=== PATIENT | female | born 1945 | race Caucasian/White ===

== ENCOUNTER → 2017-03-25 | Outpatient (CLI) | payer OTHER | END | disposition home or self-care (01) | LOC: KCIC US 10:22 | DX: R09.89 Other specified symptoms and signs involving the circulatory and respiratory systems (principal) | CPT/HCPCS: 93880 ==

== ENCOUNTER → 2017-08-15 | Outpatient (CLI) | payer OTHER | END | disposition home or self-care (01) | LOC: ECHO 08:42 | DX: I08.1 Rheumatic disorders of both mitral and tricuspid valves (principal); G45.9 Transient cerebral ischemic attack, unspecified | CPT/HCPCS: 93306 ==

== ENCOUNTER → 2017-08-18 | Outpatient (CLI) | payer OTHER | END | disposition home or self-care (01) | LOC: MRI 07:50 | DX: G45.9 Transient cerebral ischemic attack, unspecified (principal); F48.2 Pseudobulbar affect | CPT/HCPCS: 70544; 70547; 70551 ==

== ENCOUNTER → 2019-05-05 | Outpatient (CLI) | payer MEDICARE ==
--- NOTE | 2019-05-05 12:02 | KCIC ---
Bone densitometry 05/05/2019 9:46 AM Indication: Postmenopausal screening exam history of adult fracture Comparison Study: None. Discussion: Bone Densitometry was performed with dual photon absorption of the lumbar spine and proximal femur Lumbar Spine: Bone average density is 0.944g/cm2 for L1-L4. T-Score is -0.9. Left proximal femur Bone average density is 0.684g/cm2. T-Score is -2.1. IMPRESSION: Osteopenia. Note: Definitions established by the World Health Organization: Normal: T-score is -1.0 or above. Osteopenia: T-score is between -1.0 and -2.5. Osteoporosis: T-score is -2.5 or below. Electronically signed by: Ambrocio Srivastava MD (05/05/2019 11:59 AM) [id number]
== END ==
LOC: KCIC DEXA 09:21
PROVIDERS: ATTEND Family Medicine
DX: M85.88 Other specified disorders of bone density and structure, other site (principal); M81.0 Age-related osteoporosis without current pathological fracture
CPT/HCPCS: 77080

== ENCOUNTER → 2019-11-01 | Outpatient (CLI) | payer MEDICARE ==
--- NOTE | 2019-11-02 09:22 | KCIC ---
BILATERAL SCREENING MAMMOGRAM, 3-D History: Routine screening. Comparison: None. Interpreted as new baseline examination. Technique: MLO and CC digital tomosynthesis (3D) images obtained. Radiologist reviewed these images on dedicated workstation. Findings: Breast Tissue Density B : There are scattered areas of fibroglandular density. A few arterial calcifications are seen. There are no dominant masses, suspicious microcalcifications, or architectural distortion. IMPRESSION: No mammographic evidence of malignancy. Recommend routine screening. BI-RADS category 2: Benign findings. The images were reviewed with computer-aided detection. Patient information is entered into reminder system with a target due date for the next screening mammogram. Mammography is the most sensitive method for finding small breast cancers, but it does not detect them all and is not a substitute for careful clinical examination. A negative mammogram does not negate a clinically suspicious finding and should not result in delay in biopsying a clinically suspicious abnormality. "Our facility is accredited by the [employer] Mammography Program." Electronically signed by: Suraj Dumont MD (11/02/2019 9:19 AM) [id number]
== END | disposition home or self-care (01) ==
LOC: KCIC MAMMO 09:45
PROVIDERS: ATTEND Family Medicine
DX: Z12.31 Encounter for screening mammogram for malignant neoplasm of breast (principal)
CPT/HCPCS: 77063; 77067

== ENCOUNTER → 2021-05-07 | Outpatient (CLI) | payer MEDICARE ==
--- NOTE | 2021-05-07 11:50 | KCIC ---
Bone Densitometry History: Reason: POST MENOPAUSAL / Comparison: Bone density 05/05/2019. Findings: Bone Densitometry was performed with dual photon absorption of the lumbar spine and left proximal fem ur. Lumbar Spine: Bone density is 1.011 g/cm2 for L1-L4. T-score is -0.3. Z-score is 2.1. The bone mineral density has increased by 7.1% since the prior study. Left total femur: Bone density is 0.684 g/cm2. T-score is -2.1. Z-score is -0.3. There has been no significant change from the prior study. IMPRESSION: 1. There is normal bone mineral density of the lumbar spine. 2. There is advanced osteopenia of the left total femur.. World Health Organization definition of osteoporosis and osteopenia for women: normal equal s T score at or above -1.0 standard deviations; osteopenia equals T score between -1.0 and -2.5 stand fabiana deviations; osteoporosis equals T score at or below -2.5 standard deviations. Electronically signed by: Suraj Dumont MD (05/07/2021 11:48 AM) [id number]
== END ==
LOC: KCIC DEXA 09:47
PROVIDERS: ATTEND Family Medicine
DX: M85.88 Other specified disorders of bone density and structure, other site (principal); E55.9 Vitamin D deficiency, unspecified; Z78.0 Asymptomatic menopausal state
CPT/HCPCS: 77080